=== PATIENT | male | born 2005 | race Two or more races ===

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

== ENCOUNTER 2023-05-18 17:43 | Outpatient (REF) | payer MEDICAID, SELFPAY ==
[2023-05-19 04:17] LABS: CT PCR NOT DETECTED (Not Detect.); NG PCR NOT DETECTED (Not Detect.)
== END 2023-05-18 17:44 | disposition home or self-care (01) ==
LOC: HO.HHCLNP 17:43
PROVIDERS: Visit Provider Pediatrics
DX: Z30.09 Encounter for other general counseling and advice on contraception (principal)
CPT/HCPCS: 0353U